=== PATIENT | female | born 1940 | race Caucasian/White ===

== ENCOUNTER → 2025-06-29 05:00 | Outpatient (REF) | payer MEDICARE, SELFPAY ==
[2025-06-29 08:17] LABS: Hematocrit 28.6 % (37-47); Hemoglobin 9.2 g/dL (12.0-15.0); Mean Corp Hgb Conc 32.2 g/dL (32-36); Mean Corpuscular Volume 104.8 fL (81-99); Mean Platelet Vol. 10.4 fl (6.2-12.0); Platelet Count 324 K/mm3 (150-450); RBC Distribution Width CV 16.7 % (11.6-14.6); RBC Distribution Width SD 64.5 fl (35.1-43.9); Red Blood Count 2.73 M/mm3 (4.2-5.4); White Blood Count 5.7 K/mm3 (4.4-11.0)
[2025-06-29 08:34] LABS: Anion Gap 9 (5-15); BUN 12 mg/dL (4-19); BUN/Creat Ratio 11.5 RATIO (10-20); Calcium,Total 9.4 mg/dL (7.6-11.0); Carbon Dioxide 24.7 mmol/L (21.0-32.0); Chloride 106 mmol/L (98-108); Glucose 99 mg/dL (70-99); Potassium 3.8 mmol/L (3.3-5.1)
== END ==
LOC: OLS.ACH 05:00
PROVIDERS: Visit Provider Internal Medicine
DX: I50.32 Chronic diastolic (congestive) heart failure (principal); N18.30 Chronic kidney disease, stage 3 unspecified; I69.193 Ataxia following nontraumatic intracerebral hemorrhage
CPT/HCPCS: 36415; 80048; 85027